=== PATIENT | male | born 1980 | race Two or more races ===

== ENCOUNTER 2018-02-10 00:18 | Inpatient (IN) | payer OTHER ==
[~2018-02-10] VITALS: Ht 175.3 cm; Wt 108.9 kg
[~2018-02-10 00:18] MED LIST: CEP500 PO; IBUP-2708 PO; NAPR-1043 PO; NOR5/325 PO; PER PO; [UNRECOGNIZED DRUG - CODE] PO
[2018-02-10] MEDS ORDERED: FAMOTIDINE 20 MG TAB PO ONE (09:50)
[2018-02-10] MEDS ORDERED: AMPICILLIN/SULBACT (*) 3 GM VL 3 GM in NS(*) 0.9% 100 ML BAG 100 ML IVPB ONE (09:50)
[2018-02-10] MEDS ORDERED: ACETAMINOPHEN 500 MG TAB PO ONE (09:50)
[2018-02-10] MEDS ORDERED: LIDOCAINE/SOD BICARB 8.4% SYR ID ONE (09:50)
[2018-02-10] MEDS ORDERED: NORMOSOL R SOLN(*) 1000 ML BAG 1,000 ML IV PRN (09:50)
[2018-02-10] MEDS ORDERED: PREGABALIN 150 MG CAPSULE PO ONE (09:50)
[2018-02-10] MEDS ORDERED: MIDAZOLAM 2 MG/2 ML VIAL IVP PRN (09:50)
[2018-02-10] MEDS ORDERED: ROPIVACAINE 0.5% 20 ML VIAL ONE ×2 (10:14→18:30)
[2018-02-10] MEDS ORDERED: ACETAMINOPHEN 500 MG TAB ONE (10:35)
[2018-02-10 10:39] LABS: PLATELET COUNT, AUTOMATED 318 K/uL (150-450)
[2018-02-10 10:42] VITALS: BP 129/71
[2018-02-10 10:48] LABS: INR 0.97
[2018-02-10] MEDS ORDERED: LIDOCAINE MPF 1% 5 ML VIAL ONE (11:42)
[2018-02-10] MEDS ORDERED: DEXAMETHASONE SOD PHOS 10MG/ML ONE (11:42)
[2018-02-10] MEDS ORDERED: PROPOFOL EMUL(*) 10MG/ML 20 ML 20 ML ONE (11:42)
[2018-02-10] MEDS ORDERED: ONDANSETRON 4 MG/2 ML VIAL ONE (11:42)
[2018-02-10] MEDS ORDERED: fentaNYL CITR 100 MCG/2 ML AMP ONE ×6 (11:44→22:37)
[2018-02-10] MEDS ORDERED: ROCURONIUM BROM 10 MG/ML 10 ML ONE (12:00)
[2018-02-10] MEDS ORDERED: PHENYLEPHRINE 10 MG/1 ML VIAL ONE (12:00)
[2018-02-10] MEDS ORDERED: SUGAMMADEX SOD 500 MG/5 ML SDV ONE (12:00)
[2018-02-10] MEDS ORDERED: INDOCYANINE GREEN 25 MG VIAL IVP ONE (12:45)
[2018-02-10] MEDS ORDERED: METOPROLOL TART 5 MG/5 ML VIAL ONE (15:07)
[2018-02-10] MEDS ORDERED: DESFLURANE 240 ML BTL INH ONE (19:29)
[2018-02-10] MEDS ORDERED: HYDROGEN PEROXID 3% 473 ML BTL TP ONE (21:42)
[2018-02-10] MEDS ORDERED: HYDROmorphone HCL 2 MG/ML SDV ONE (22:17)
[2018-02-10] MEDS ORDERED: ACETAMINOPHEN(*)1000 MG/100 ML 100 ML IVPB ONE (22:17)
[2018-02-10] MEDS ORDERED: PROMETHAZINE 25 MG/ML 1 ML AMP IVP PRN (22:20)
[2018-02-10] MEDS ORDERED: FLUSH 10 ML SYR IVP PRN (22:20)
[2018-02-10] MEDS ORDERED: NALOXONE HCL 0.4 MG/ML VIAL IVP PRN (22:20)
[2018-02-10] MEDS ORDERED: ONDANSETRON 4 MG/2 ML VIAL IVP PRN (22:20)
--- NOTE | 2018-02-10 22:57 | Post Operative Progress Note ---
Post Operative Progress Note Date: Feb 10, 2018 Time: 22:22 Surgeon: Gui Dictation number: [id number] Anesthesia: GETA by Dr. Viera Pre-Op Diagnosis: Colostomy Post-Op Diagnosis: ZACH Findings: Anastomotic leak on leak test, incompleted anastomosis necessitating takedown of the anastomosis and construction of new colostomy. Procedure(s): Robotic colostomy takedown Laparotomy with anastomosis takedown Construction of new colostomy Specimen Removed:(May be N/A): Rectal stump Descending colon Complications: EEA misfire with incomplete anastomosis requiring reconstruction of a new colostomy Fluids: See anesthesia record Estimated Blood Loss: 100mL Date OP Note Dictated: Feb 10, 2018 Time OP Note Dictated: 22:27 JOSE ENRIQUE HUTCHISON MD Feb 10, 2018 22:57
[2018-02-10 23:36] VITALS: BP 142/90
[2018-02-10 23:45] VITALS: BP 135/88
[2018-02-10] MEDS ORDERED: PIPERACILLIN/TAZO*3.375GM VIAL 3.375 GM ONE (23:49)
[2018-02-10] MEDS: NS(*) 0.9% 1000 ML BAG 1,000 ML IV PRN (23:57)
[2018-02-10] MEDS: HYDROmorphone PCA 6 MG/30 ML IV PRN (23:57)
[2018-02-10] MEDS: PIPERACILLIN/TAZO*3.375GM VIAL 3.375 GM in NS(*) 0.9% 100 ML ADDVANT BAG 100 ML IVPB SCH (23:59)
[2018-02-11] VITALS (16 sets, daily range): BP systolic 112–142; BP diastolic 70–93; Ht 175.3 cm; Wt 108.9 kg
[2018-02-11] MEDS ORDERED: ACETAMINOPHEN(*)1000 MG/100 ML 100 ML IVPB SCH
[2018-02-11] MEDS: ACETAMINOPHEN(*)1000 MG/100 ML 100 ML IVPB SCH ×4 (04:45→23:58)
[2018-02-11] MEDS: PIPERACILLIN/TAZO*3.375GM VIAL 3.375 GM in NS(*) 0.9% 100 ML ADDVANT BAG 100 ML IVPB SCH ×3 (05:30→17:52)
[2018-02-11 05:31] LABS: PLATELET COUNT, AUTOMATED 273 K/uL (150-450)
--- NOTE | 2018-02-11 06:50 | General Surgery Progress Note ---
Subjective Progress Notes Subjective Pt had right arm pain in PACU but this is better this morning. 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 No other complaints this morning. Physical Exam Vital Signs Date Time Temp Pulse Resp B/P (MAP) Pulse Ox O2 Delivery O2 Flow Rate FiO2 02/11/18 05:19 20 96 02/11/18 05:00 102 121/79 (93) Nasal Cannula 02/10/18 23:45 2.0 02/10/18 23:36 99.7 Intake and Output 02/11/18 07:00 Intake Total 5405 ml Output Total 1550 ml Balance 3855 ml Intake IV Total 5405 ml Output Urine Total 1550 ml General Appearance: Alert, Awake, No Acute Distress, Afebrile GI: Other (Soft, appropriate TTP, dressings are dry and intact, stoma is pink, no gas or stool in bag.) Extremities: Warm, Perfused Result Diagram: 02/11/1851902/11/18519 Assessment and Plan Problems: (1) Colostomy in place Status: Chronic Assessment & Plan: 02/11/18: POD#1 s/p Robotic colostomy takedown, mobilization of splenic flexure, attempt at reanastomosis which failed due to massive air leak, attempt at repair both robotically then conversion to laparotomy with attempt at repair of anastomosis failed so it was taken down and the rectal stump was repaired and unfortunately a new colostomy was fashioned. Pt doing relatively well this morning. Pain seems to be controlled. Awaiting return of bowel function. Start to mobilize today, IS, aggressive pulmonary hygiene. PPI for GI prophylaxis, will start lovenox tomorrow for VTE prophylaxis. SCDs for VTE prophylaxis. Central Venous Access Medical Necessity for Access: IV Access, Medication Administration Condition Stable. Time Spent: < 30 min Exam Sepsis Risk: No Definite Risk JOSE ENRIQUE HUTCHISON MD Feb 11, 2018 06:50
--- NOTE | 2018-02-11 07:49 | OPERATIVE REPORT 1 ---
EVENT DATE: February 10, 2018 SURGEON: Evaristo Messer M.D. ANESTHESIOLOGIST: Giovany Viera MD ANESTHESIA: General endotracheal. PREOPERATIVE DIAGNOSIS Colostomy. POSTOPERATIVE DIAGNOSIS Colostomy. PROCEDURE PERFORMED 1. Robotic colostomy takedown. 2. Robotic splenic flexure mobilization. 3. Robotic lysis of adhesions. 4. Laparotomy. 5. Anastomosis takedown. 6. Repair of rectal stump. 7. Construction of a new colostomy. COMPLICATIONS None. CONDITION Stable. ESTIMATED BLOOD LOSS 100 mL. SPECIMENS 1. Rectal stump. 2. Descending colon. INDICATIONS This is a 37-year-old male who several years ago I performed a Connelly's procedure for perforated diverticulitis. He has had a colostomy and has recovered well from the surgery and presents to have the colostomy reversed. DESCRIPTION OF PROCEDURE Patient was brought to the operating room and placed supine on the operating table. General endotracheal anesthesia was administered and his abdomen was prepped and draped in sterile fashion. I then anesthetized the right subcostal skin with 0.5 ropivacaine plain and made a 5 mm incision in the right subcostal skin and used a Veress needle to access the abdominal cavity. I insufflated the abdominal cavity to a pressure of 15 mmHg and used the 5 mm optical port with the camera on site and focused and inserted the port into the patient's abdomen. I then, under direct visualization, placed an 8 mm port in the epigastric midline, an 8 mm port in the right mid abdomen, another 8 mm port a little bit lower in the right mid abdomen and a 12 mm robotic port in the right lower quadrant. I then brought in the robot, docked it and targeted it and inserted the instruments and then proceeded with adhesiolysis There were quite a few adhesions in the midline, which were taken down with electric hot scissors. I then identified the colostomy and there was herniated omentum and some small bowel, which I was easily able to reduce from the peristomal hernia. Once this was completed, I went down to the stump and identified the stump, which I had left long sutures on the stump, so I cleaned off the stump and actually there was some distal sigmoid left on this. I dissected down the distal sigmoid until I got to rectum and used the Endo-TAO stapler and divided the rectum at this level. I then undocked the robot after removing the instruments and scrubbed back in and then went to the table and took down the colostomy. I used electrocautery to dissect completely around the colostomy all the way down through the patient's abdominal wall. I then reduced the colon back into the patient's abdomen. It was not long enough to reach down to the pelvis so I immobilized the splenic flexure by dividing the lateral attachment to the descending colon as well as the splenocolic ligament and I took down the omentum off the transverse colon as well. This mobilized it quite a bit but it was still not long enough to get down to the pelvis. The inferior mesenteric artery had already been divided during the first operation but I divided the mesocolon up into the IMV and cleaned this off and then clipped it proximally and distally and divided it between clips. I then freed the attachments off the anterior surface of the pancreas and after this was completed there was more than enough length to get down to the pelvis. At this point, I put a wound protector in the colostomy wound and then removed the rectal stump from the patient's abdomen and brought out the end of the colon. I then cut off the staple line and inserted the EEA sizers and found that the 29 mm sizer fit well. I then inserted the anvil and then placed a 2-0 silk pursestring suture around it to hold the anvil in place and then reduced the colon back into the patient's abdomen and sealed the wound protector. I then used Firefly and identified good vascular flow all the way to the end of the colon. It was bright and had brisk perfusion of the ICG. I then inserted the EEA stapler into the patient's rectum and advanced it until it engaged just anterior to the staple line. I then advanced the trocar and with the help of my assistant chief nursing officer brought the colon down and engaged the anvil to the main part of the EEA stapler and locked it into place. I then closed the anvil until the red tere was in the green zone and then I personally fired the EEA stapler after removing the safety. I left the trigger handle compressed for about 30 seconds and then released it and then we opened the anvil about half a turn and I slowly rotated the EEA stapler out and it seemed to come out with no problems. I then filled the pelvis with saline and inserted the proctoscope into the patient's rectum and inflated the rectum with gas. There was rapid bubbling from the anastomosis. I tried to inspect it laparoscopically but ultimately ended up redocking and targeting the robot and then looking down into the pelvis it looked to be posterior where the bubbling was coming from. I placed several interrupted 3-0 silk sutures but no matter where I placed these the bubbling would not stop. At this point, after working on this for quite a while, I went ahead and elected to convert to a laparotomy. I removed all the robotic instruments and docked the robot, took all the robotic and laparoscopic instruments off the field and brought in the laparotomy set with long instruments and retractor set. I anesthetized the midline right in the old scar and made a vertical midline incision and dissected down to the dermis and the subcutaneous fat. I identified the midline fascia and incised this and he had a periumbilical hernia that I got into the hernia sac and, therefore, into the abdominal cavity and then placed my fingers underneath the fascia and opened the entire fascia and peritoneum along the entire length of the skin incision. I then set up the Omni retractor set and retracted the small bowel out of the way. I then locked down into the pelvis and had my assistant chief nursing officer inserting the proctoscope into the rectum while I was looking for bubbling and again tried to secure the anastomosis. I was unable to secure the anastomosis. I then cut the colon off the rectal stump and then oversewed the entire staple line as well as the hole in the anterior wall of the rectal stump. Eventually, there was no further bubbling. Because of the amount of bubbling, I did not feel it was safe to complete an anastomosis at this time. I then pulled the colon out through the colostomy wound in the left side of the patient's abdomen and then left it there to be matured in a little bit. I then irrigated and dried the patient's abdomen, made sure there was no bleeding and then closed the midline fascia with running 0-looped PDS sutures. I then irrigated and dried the midline wound and closed the subcutaneous tissues with interrupted 3-0 Vicryl sutures. The skin was closed with adam. I did place a single 0 Vicryl suture through the fascia and the 12 mm port in the right lower quadrant and tied this down. The port site skin incisions were closed with 4-0 Monocryl subcuticular sutures. I then matured the stoma by sewing the colon to the fascia with interrupted 3-0 Vicryl sutures and then sewed it to the skin with running 4-0 Monocryl sutures. The skin was clean and dried and we placed a stoma appliance around the colostomy. I then placed dressings over each of the port sites and Prevena VAC dressing over the midline incision. The patient was then awakened and extubated in the operating room and transported to the recovery room in stable condition, having tolerated the procedure without any apparent problems. ALLI
[2018-02-11] MEDS: NS(*) 0.9% 1000 ML BAG 1,000 ML IV PRN ×2 (09:06→19:08)
[2018-02-11] MEDS: PANTOPRAZOLE SOD 40 MG IV VIAL IVP SCH (09:17)
--- NOTE | 2018-02-11 10:54 | Medical Nutrition Therapy ---
Nutrition Anthropometrics Height (Inches): 69.00 Height (Calculated Centimeters: 175.667178 Weight (Pounds): 240 Weight (Calculated Kilograms): 108.862 BMI: 35 Piter Nutrition Score: Probably Inadequate Piter Nutrition Risk Score: 19 Dietary Referral Nutrition Risk Factors: Nutrition Risk Comment: Physical Findings Physical Appearance: Obese BMI 30-39 Skin Appearance Skin Appearance: Edema Edema Location Modifier: Edema Location: Type of Edema: Degree of Edema: Gastrointestinal Symptoms GI Symtoms: Blood in Stool Tube Present: Bowel Sounds: Recent Bowel Pattern: Colostomy Stool Characteristics: Nutritional Diagnosis Nutritional Risk Acuity 2: New Colostomy Nutritional Risk Acuity 3: Substance abuse Past Medical History: Hx of diverticulitis and colostomy (2015). Nutritional Acuity: 2-Moderate Nutrition Diagnosis: Inadequate Food Intake Nutrition Etiology: Physiological Causes Nutrition Problem/Etiology/Sym: Inadeqaute food intake, as related to physiological causes, as evidenced by new colostomy and NPO diet. Energy Requirement: 2600 ([place], AF- 1.3) Protein Requirement: 86 (.8g/kg) Fluid Requirement: 3200 (30ml/kg) Diet Type: NPO (Nothing by Mouth) Nutrition Intervention: Incr diet as tolerated Nutrition Monitoring & Eval RD Patient Assessment Time: [address] Assessment Type: RD Assessment Patient Nutrition Acuity: 2-Moderate Follow Up Date: Feb 14, 2018 Nutritional Comment: 02/10. Admitted for surgery, reconstruction of colostomy, resulting in new colostomy. Random BG elevated 175 and calcium low 7.8. Pt has a obese BMI of 35. Currently NPO, increase diet as tolerated. Recommend 2600 kcal and 86g protein when diet advances. Will cont to monitor. JUNIOR BALL Feb 11, 2018 10:37
[2018-02-11] MEDS: HYDROmorphone PCA 6 MG/30 ML IV PRN (13:02)
[2018-02-12] MEDS: PIPERACILLIN/TAZO*3.375GM VIAL 3.375 GM in NS(*) 0.9% 100 ML ADDVANT BAG 100 ML IVPB SCH ×5 (00:17→23:46)
[2018-02-12 00:18] VITALS: BP 128/76
[2018-02-12 03:34] VITALS: BP 130/78
[2018-02-12] MEDS: HYDROmorphone PCA 6 MG/30 ML IV PRN ×2 (03:52→15:24)
[2018-02-12] MEDS: ACETAMINOPHEN(*)1000 MG/100 ML 100 ML IVPB SCH ×4 (04:55→22:08)
[2018-02-12 06:23] LABS: PLATELET COUNT, AUTOMATED 211 K/uL (150-450)
[2018-02-12 08:36] VITALS: BP 121/77
[2018-02-12] MEDS: PANTOPRAZOLE SOD 40 MG IV VIAL IVP SCH (08:45)
--- NOTE | 2018-02-12 10:07 | General Surgery Progress Note ---
Subjective Progress Notes Subjective No complaints. Good pain control. Passing gas into stoma bag. Physical Exam Vital Signs Date Time Temp Pulse Resp B/P (MAP) Pulse Ox O2 Delivery O2 Flow Rate FiO2 02/12/18 08:47 1.5 02/12/18 08:47 83 Nasal Cannula 02/12/18 05:54 16 02/12/18 03:34 99.2 130/78 (95) 02/12/18 00:18 96 Intake and Output 02/12/18 07:00 Intake Total 3660 ml Output Total 1775 ml Balance 1885 ml Intake Oral 0 ml IV Total 3660 ml Output Urine Total 1700 ml Stool Total 75 ml General Appearance: Alert, Awake, No Acute Distress, Afebrile GI: Other (Soft, appropriate postop TTP. Dressings are C/D/I, prevena vac dressing is in place with good seal.) Extremities: Warm, Perfused Result Diagram: 02/12/18 0612 02/12/18 0612 Assessment and Plan Problems: (1) Colostomy in place Status: Chronic Assessment & Plan: 02/11/18: POD#1 s/p Robotic colostomy takedown, mobilization of splenic flexure, attempt at reanastomosis which failed due to massive air leak, attempt at repair both robotically then conversion to laparotomy with attempt at repair of anastomosis failed so it was taken down and the rectal stump was repaired and unfortunately a new colostomy was fashioned. Pt doing relatively well this morning. Pain seems to be controlled. Awaiting return of bowel function. Start to mobilize today, IS, aggressive pulmonary hygiene. PPI for GI prophylaxis, will start lovenox tomorrow for VTE prophylaxis. SCDs for VTE prophylaxis. 02/12/18: POD#2. Doing well. Passing flatus in stoma bag. Will start clear diet today. Continue mobilization, aggressive pulmonary hygiene, IS, PPI, lovenox, etc. Central Venous Access Medical Necessity for Access: IV Access, Medication Administration Condition Stable. Time Spent: < 30 min Exam Sepsis Risk: No Definite Risk JOSE ENRIQUE HUTCHISON MD Feb 12, 2018 10:07
[2018-02-12] MEDS: NS(*) 0.9% 1000 ML BAG 1,000 ML IV PRN ×2 (14:42→23:54)
[2018-02-12 15:35] VITALS: BP 129/83
[2018-02-12 19:48] VITALS: BP 140/84
[2018-02-12 23:48] VITALS: BP 132/90
[2018-02-13] MEDS: ACETAMINOPHEN(*)1000 MG/100 ML 100 ML IVPB SCH ×4 (04:15→22:25)
[2018-02-13 04:17] VITALS: BP 142/89
[2018-02-13] MEDS: PIPERACILLIN/TAZO*3.375GM VIAL 3.375 GM in NS(*) 0.9% 100 ML ADDVANT BAG 100 ML IVPB SCH ×3 (05:49→18:39)
[2018-02-13 07:33] VITALS: BP 150/97
[2018-02-13] MEDS: PANTOPRAZOLE SOD 40 MG IV VIAL IVP SCH (09:02)
[2018-02-13] MEDS: ENOXAPARIN 40 MG/0.4ML SYR SC SCH (09:02)
--- NOTE | 2018-02-13 09:48 | General Surgery Progress Note ---
Subjective Progress Notes Subjective No complaints this morning. Lots of gas in the bag and now passing stool via colostomy. Physical Exam Vital Signs Date Time Temp Pulse Resp B/P (MAP) Pulse Ox O2 Delivery O2 Flow Rate FiO2 02/13/18 09:08 90 02/13/18 07:33 Nasal Cannula 0.5 02/13/18 07:33 99.1 98 20 150/97 (114) Intake and Output 02/13/18 07:00 Intake Total 3695 ml Output Total 725 ml Balance 2970 ml Intake Oral 840 ml IV Total 2855 ml Output Urine Total 700 ml Stool Total 25 ml Drainage Total 0 ml General Appearance: Alert, Awake, No Acute Distress, Afebrile GI: Other (Soft, appropriate postop TTP, prevena vac dressing is in place, intact, with good seal. Stoma is pink and functional with gas and liquid stool in the bag.) Extremities: Warm, Perfused Result Diagram: 02/12/1861102/12/18611 Assessment and Plan Problems: (1) Colostomy in place Status: Chronic Assessment & Plan: 02/11/18: POD#1 s/p Robotic colostomy takedown, mobilization of splenic flexure, attempt at reanastomosis which failed due to massive air leak, attempt at repair both robotically then conversion to laparotomy with attempt at repair of anastomosis failed so it was taken down and the rectal stump was repaired and unfortunately a new colostomy was fashioned. Pt doing relatively well this morning. Pain seems to be controlled. Awaiting return of bowel function. Start to mobilize today, IS, aggressive pulmonary hygiene. PPI for GI prophylaxis, will start lovenox tomorrow for VTE prophylaxis. SCDs for VTE prophylaxis. 02/12/18: POD#2. Doing well. Passing flatus in stoma bag. Will start clear diet today. Continue mobilization, aggressive pulmonary hygiene, IS, PPI, love nox, etc. 02/13/18: POD#3. Doing well. GI function returning. Continue clear diet today and increase volume. Continue IV meds until tolerating regular diet. Remove shaw today. Continue mobilization, pulmonary hygiene, IS, PPI, lovenox, etc. Central Venous Access Medical Necessity for Access: IV Access, Medication Administration Condition Stable. Time Spent: < 30 min Exam Sepsis Risk: No Definite Risk JOSE ENRIQUE HUTCHISON MD Feb 13, 2018 09:48
[2018-02-13] MEDS: NS(*) 0.9% 1000 ML BAG 1,000 ML IV PRN ×2 (10:04→20:55)
[2018-02-13] MEDS: HYDROmorphone PCA 6 MG/30 ML IV PRN (10:05)
[2018-02-13 11:05] VITALS: BP 161/98
[2018-02-13 16:17] VITALS: BP 162/109
[2018-02-13 20:19] VITALS: BP 147/107
[2018-02-13 23:37] VITALS: BP 149/97
[2018-02-14] MEDS: PIPERACILLIN/TAZO*3.375GM VIAL 3.375 GM in NS(*) 0.9% 100 ML ADDVANT BAG 100 ML IVPB SCH ×4 (00:23→18:04)
[2018-02-14] MEDS: HYDROmorphone PCA 6 MG/30 ML IV PRN ×2 (04:30→16:26)
[2018-02-14] MEDS: ACETAMINOPHEN(*)1000 MG/100 ML 100 ML IVPB SCH ×4 (04:35→22:02)
[2018-02-14 04:38] VITALS: BP 154/99
[2018-02-14 05:47] LABS: PLATELET COUNT, AUTOMATED 247 K/uL (150-450)
[2018-02-14] MEDS: NS(*) 0.9% 1000 ML BAG 1,000 ML IV PRN (06:20)
[2018-02-14] MEDS ORDERED: NS(*) 0.9% 1000 ML BAG 1,000 ML IV PRN (07:55)
--- NOTE | 2018-02-14 07:58 | General Surgery Progress Note ---
Subjective Progress Notes Subjective No complaints this morning. Good stoma output. Tolerating clear diet. Physical Exam Vital Signs Date Time Temp Pulse Resp B/P (MAP) Pulse Ox O2 Delivery O2 Flow Rate FiO2 02/14/18 05:49 92 02/14/18 04:38 99.3 104 16 154/99 (117) Nasal Cannula 0.5 Intake and Output 02/14/18 06:59 Intake Total 4345 ml Output Total 1305 ml Balance 3040 ml Intake Oral 560 ml IV Total 3785 ml Output Urine Total 700 ml Stool Total 605 ml # Voids 4 General Appearance: Alert, Awake, No Acute Distress, Afebrile GI: Other (Soft, appropriate postop TTP, stoma is pink with gas and liquid stool in bag. Prevena vac dressing is intact with good seal.) Extremities: Warm, Perfused Result Diagram: 02/14/18 0512 02/14/18 0512 Assessment and Plan Problems: (1) Colostomy in place Status: Chronic Assessment & Plan: 02/11/18: POD#1 s/p Robotic colostomy takedown, mobilization of splenic flexure, attempt at reanastomosis which failed due to massive air leak, attempt at repair both robotically then conversion to laparotomy with attempt at repair of anastomosis failed so it was taken down and the rectal stump was repaired and unfortunately a new colostomy was fashioned. Pt doing relatively well this morning. Pain seems to be controlled. Awaiting return of bowel function. Start to mobilize today, IS, aggressive pulmonary hygiene. PPI for GI prophylaxis, will start lovenox tomorrow for VTE prophylaxis. SCDs for VTE prophylaxis. 02/12/18: POD#2. Doing well. Passing flatus in stoma bag. Will start clear diet today. Continue mobilization, aggressive pulmonary hygiene, IS, PPI, lovenox, etc. 02/13/18: POD#3. Doing well. GI function returning. Continue clear diet today and increase volume. Continue IV meds until tolerating regular diet. Remove shaw today. Continue mobilization, pulmonary hygiene, IS, PPI, lovenox, etc. 02/14/18: POD#4. Doing well. Will start regular diet. Continue IV meds until he demonstrates he's tolerating regular diet. Continue mobilization, pulmonary hygiene, IS, PPI, lovenox, etc. Central Venous Access Medical Necessity for Access: IV Access, Medication Administration Condition Stable. Time Spent: < 30 min Exam Sepsis Risk: No Definite Risk JOSE ENRIQUE HUTCHISON MD Feb 14, 2018 07:58
[2018-02-14] MEDS: ENOXAPARIN 40 MG/0.4ML SYR SC SCH (09:08)
[2018-02-14] MEDS: PANTOPRAZOLE SOD 40 MG IV VIAL IVP SCH (09:08)
[2018-02-14 10:55] VITALS: BP 163/107
--- NOTE | 2018-02-14 13:51 | Medical Nutrition Therapy ---
Nutrition Anthropometrics Height (Inches): 69.00 Height (Calculated Centimeters: 175.416772 Weight (Pounds): 240 Weight (Calculated Kilograms): 108.862 BMI: 35.4 Piter Nutrition Score: Probably Inadequate Piter Nutrition Risk Score: 18 Dietary Referral Nutrition Risk Factors: Nutrition Risk Comment: Physical Findings Physical Appearance: Obese BMI 30-39 Skin Appearance Skin Appearance: Edema Edema Location Modifier: Edema Location: Type of Edema: Degree of Edema: Gastrointestinal Symptoms GI Symtoms: Bloating Tube Present: Bowel Sounds: Recent Bowel Pattern: Colostomy Stool Characteristics: Nutritional Diagnosis Nutritional Risk Acuity 2: New Colostomy Nutritional Risk Acuity 3: Substance abuse Past Medical History: Hx of diverticulitis and colostomy (2015). Nutritional Acuity: 2-Moderate Nutrition Diagnosis: Inadequate Food Intake Nutrition Etiology: Physiological Causes Nutrition Problem/Etiology/Sym: Inadeqaute food intake, as related to physiological causes, as evidenced by new colostomy and NPO diet. Energy Requirement: 2600 ([place], AF- 1.3) Protein Requirement: 86 (.8g/kg) Fluid Requirement: 3200 (30ml/kg) Diet Type: NPO (Nothing by Mouth) Nutrition Intervention: Incr diet as tolerated Nutrition Monitoring & Eval RD Patient Assessment Time: [address] Assessment Type: RD Re-Assessment Patient Nutrition Acuity: 2-Moderate Follow Up Date: Feb 19, 2018 Nutritional Comment: 02/10. Admitted for surgery, reconstruction of colostomy, resulting in new colostomy. Random BG elevated 175 and calcium low 7.8. Pt has a obese BMI of 35. Currently NPO, increase diet as tolerated. Recommend 2600 kcal and 86g protein when diet advances. Will cont to monitor. MR 02/14. Pt doing well. Advanced from clear liquids to ARLET this morning. Pt has passed stool via new colostomy. Notable labs include: low sodium 134, BUN 7, creatinine .5, and calcium 8. Noted pt experincing bloating. Will begin to monitor pt intake on ARLET. JUNIOR BALL Feb 14, 2018 10:15
[2018-02-14 19:22] VITALS: BP 158/108
[2018-02-14] MEDS ORDERED: NEOMYCIN/POLYMYX/BACITR OINT 1 PACKET TP PRN (20:20)
[2018-02-14 22:40] VITALS: BP 157/93
[2018-02-15] MEDS: PIPERACILLIN/TAZO*3.375GM VIAL 3.375 GM in NS(*) 0.9% 100 ML ADDVANT BAG 100 ML IVPB SCH ×2 (00:16→06:08)
[2018-02-15 04:30] VITALS: BP 156/103
[2018-02-15] MEDS: ACETAMINOPHEN(*)1000 MG/100 ML 100 ML IVPB SCH (04:34)
[2018-02-15] MEDS ORDERED: HYDROmorphone HCL 2 MG/ML SDV IVP PRN (07:55)
--- NOTE | 2018-02-15 07:56 | General Surgery Progress Note ---
Subjective Progress Notes Subjective No complaints. Seems to be tolerating diet. Physical Exam Vital Signs Date Time Temp Pulse Resp B/P (MAP) Pulse Ox O2 Delivery O2 Flow Rate FiO2 02/15/18 06:22 97 02/15/18 04:30 99.1 95 16 156/103 (120) Nasal Cannula 1.0 Intake and Output0 02/15/18 07:00 Intake Total 1938.6 ml Output Total 500 ml Balance 1438.6 ml Intake Oral 240 ml IV Total 1698.6 ml Stool Total 500 ml # Voids 4 General Appearance: Alert, Awake, No Acute Distress, Afebrile GI: Other (Soft, appropriate postop TTP, dressings removed. All incisions are clean dry and intact. There is some bright red blood oozing from midline incision from sticking to the prevena vac dressing upon removal. Stoma is pink with semisolid stool in bag.) Extremities: Warm, Perfused Result Diagram: 02/14/18 0512 02/14/18 0512 Assessment and Plan Problems: (1) Colostomy in place Status: Chronic Assessment & Plan: 02/11/18: POD#1 s/p Robotic colostomy takedown, mobilization of splenic flexure, attempt at reanastomosis which failed due to massive air leak, attempt at repair both robotically then conversion to laparotomy with attempt at repair of anastomosis failed so it was taken down and the rectal stump was repaired and unfortunately a new colostomy was fashioned. Pt doing relatively well this morning. Pain seems to be controlled. Awaiting return of bowel function. Start to mobilize today, IS, aggressive pulmonary hygiene. PPI for GI prophylaxis, will start lovenox tomorrow for VTE prophylaxis. SCDs for VTE prophylaxis. 02/12/18: POD#2. Doing well. Passing flatus in stoma bag. Will start clear diet today. Continue mobilization, aggressive pulmonary hygiene, IS, PPI, lovenox, etc. 02/13/18: POD#3. Doing well. GI function returning. Continue clear diet today and increase volume. Continue IV meds until tolerating regular diet. Remove shaw today. Continue mobilization, pulmonary hygiene, IS, PPI, lovenox, etc. 02/14/18: POD#4. Doing well. Will start regular diet. Continue IV meds until he demonstrates he's tolerating regular diet. Continue mobilization, pulmonary hygiene, IS, PPI, lovenox, etc. 02/15/18: POD#5. Doing well. Tolerating regular diet. Will convert meds to PO and stop IV fluids/meds. Continue mobilization, pulmonary hygiene, IS, PPI, lo venox, etc. Likely home tomorrow morning. Central Venous Access Medical Necessity for Access: IV Access, Medication Administration Condition Stable. Time Spent: < 30 min Exam Sepsis Risk: No Definite Risk JOSE ENRIQUE HUTCHISON MD Feb 15, 2018 07:56
[2018-02-15] MEDS: PANTOPRAZOLE SOD 40 MG TABEC PO SCH (08:39)
[2018-02-15] MEDS: ENOXAPARIN 40 MG/0.4ML SYR SC SCH (08:42)
[2018-02-15 12:29] VITALS: BP 158/106
[2018-02-15 19:54] VITALS: BP 156/105
[2018-02-16 00:40] VITALS: BP 143/94
[2018-02-16 02:01] VITALS: BP 148/103
[2018-02-16] MEDS ORDERED: PER PO (06:52)
--- NOTE | 2018-02-16 06:58 | Short(Outpt) Discharge Summary ---
Discharge Summary Reason for Hosp/Final Diag: (1) Colostomy in place Status: Chronic Hospital Course & Plan: 02/11/18: POD#1 s/p Robotic colostomy takedown, mobilization of splenic flexure, attempt at reanastomosis which failed due to massive air leak, attempt at repair both robotically then conversion to laparotomy with attempt at repair of anastomosis failed so it was taken down and the rectal stump was repaired and unfortunately a new colostomy was fashioned. Pt doing relatively well this morning. Pain seems to be controlled. Awaiting return of bowel function. Start to mobilize today, IS, aggressive pulmonary hygiene. PPI for GI prophylaxis, will start lovenox tomorrow for VTE prophylaxis. SCDs for VTE prophylaxis. 02/12/18: POD#2. Doing well. Passing flatus in stoma bag. Will start clear d iet today. Continue mobilization, aggressive pulmonary hygiene, IS, PPI, lovenox, etc. 02/13/18: POD#3. Doing well. GI function returning. Continue clear diet today and increase volume. Continue IV meds until tolerating regular diet. Remove shaw today. Continue mobilization, pulmonary hygiene, IS, PPI, lovenox, etc. 02/14/18: POD#4. Doing well. Will start regular diet. Continue IV meds until he demonstrates he's tolerating regular diet. Continue mobilization, pulmonary hygiene, IS, PPI, lovenox, etc. 02/15/18: POD#5. Doing well. Tolerating regular diet. Will convert meds to PO and stop IV fluids/meds. Continue mobilization, pulmonary hygiene, IS, PPI, lovenox, etc. Likely home tomorrow morning. 02/16/18: POD#6. Doing well. Tolerating regular diet. Tolerating PO meds. Will d/c to home today. Discharge Instructions Home Meds Active Scripts Oxycodone/Acetaminophen (OXYCODONE/ACETAMINOPHEN 5MG/325 MG) 5 Mg/325 Mg Tab, 1- 2 TAB PO Q4H PRN for PAIN, #30 TAB 0 Refills Prov:JOSE ENRIQUE MESSER MD 02/16/18 Reported Medications Multivitamin/Iron/Folic Acid (DAILY MULTIPLE TABLET) 1 Each Tablet, 1 EACH PO QDAY 02/02/18 Follow up Referrals: General Surgery - 10/03/18 @ Surgery, General with JOSE ENRIQUE MESSER MD You have a follow up appointment scheduled with Dr. Messer on 02/23/18, at 4:45pm. Diet: Regular Activity: No Heavy Lifting Special Instructions: You may shower as desired but don't immerse the incisions until cleared by Dr. Messer. Keep the midline incision covered with dry guaze and change these daily. When there is no further drainage, you can leave the incision open to air. You are at risk of a wound infection due to the nature of your surgery and so if you develop increasing redness, drainage, pain, fevers, etc then let me know by calling my office at [phone] (main number) or [phone] (my nurse, Mervin, number; every but ) so I can have you come in to look at the wound. If there's any problem over the weekend, come in to the ER for evaluation. Avoid any activity that involves straining or lifting more than 10 pounds for 6 weeks after surgery. JOSE ENRIQUE MESSER MD Feb 16, 2018 06:58
[2018-02-16 07:51] VITALS: BP 151/101
[2018-02-16] MEDS: ENOXAPARIN 40 MG/0.4ML SYR SC SCH (07:53)
[2018-02-16] MEDS: PANTOPRAZOLE SOD 40 MG TABEC PO SCH (07:54)
[2018-02-16 14:20] VITALS: BP 153/103
== END 2018-02-16 17:00 | disposition home or self-care (01) | DRG 330 ==
LOC: OR 00:18 → MED 23:30
PROVIDERS: ADMIT Surgery; ATTEND Surgery
PROC: 0D1M0Z4 Bypass Descending Colon to Cutaneous, Open Approach (ICD-10-PCS; 2018-02-10)
PROC: 0DJD8ZZ Inspection of Lower Intestinal Tract, Via Natural or Artificial Opening Endoscopic (ICD-10-PCS; 2018-02-10)
PROC: 8E0W4CZ Robotic Assisted Procedure of Trunk Region, Percutaneous Endoscopic Approach (ICD-10-PCS; 2018-02-10)
PROC: 0DQP8ZZ Repair Rectum, Via Natural or Artificial Opening Endoscopic (ICD-10-PCS; principal; 2018-02-10 11:50)
PROC: 0DBN4ZZ Excision of Sigmoid Colon, Percutaneous Endoscopic Approach (ICD-10-PCS; 2018-02-10 11:50)
DX: Z43.3 Encounter for attention to colostomy (principal); K91.81 Other intraoperative complications of digestive system; G89.29 Other chronic pain; Y83.8 Other surgical procedures as the cause of abnormal reaction of the patient, or of later complication, without mention of misadventure at the time of the procedure; Y73.3 Surgical instruments, materials and gastroenterology and urology devices (including sutures) associated with adverse incidents; Y92.234 Operating room of hospital as the place of occurrence of the external cause
CPT/HCPCS: 36415; 82310; 82374; 82435; 82565; 82947; 84132; 84295; 84520; 85025; 85610; 86850; 86900; 86901; 88305; 97161; 97165; C9113; J0131; J0295; J1100; J1170; J1650; J2001; J2250; J2370; J2405; J2543; J2704; J2795; J3010; J3490; J7030; J7050